=== PATIENT | female | born 1985 | race American Indian/Alaskan Native ===

== ENCOUNTER 2021-11-22 23:27 | Emergency (ER) | payer OTHER ==
[2021-11-22] MEDS ORDERED: methylPREDNISolone Sod Succinate 125 MG/2 ML INJ IV ONE (23:38)
[2021-11-22] MEDS ORDERED: diphenhydrAMINE 50 MG/ML VIAL IV ONE (23:38)
[2021-11-22] MEDS ORDERED: FAMOTIDINE 20 MG/2 ML INJ IV ONE (23:38)
[2021-11-22 23:57] VITALS: BP 128/95
--- NOTE | 2021-11-23 00:56 | Emergency Department Report ---
ED General Adult HPI - General Chief complaint: Allergic Reaction Stated complaint: ALLERGIC REACTION Time Seen by Provider: 11/23/21 00:09 Source: patient Mode of arrival: Ambulatory Limitations: No Limitations - History of Present Illness Initial comments: Patient 36-year-old female who presents for allergic reaction after eating shellfish at family dinner [employer]. Patient states eye itching burning swelling tongue swelling incident started approximately 1 hour ago. Patient denies shortness of breath there is no wheezing or stridor there is been no nausea no vomiting no lightheaded no dizziness no chest pain. Patient rates symptoms at 4/10 at this time. Severity scale (0 -10): 3 - Related Data Previous Rx's Medication Instructions Recorded Last Taken Type EPINEPHrine [Epipen 2-Enrrique] 0.3 mg IJ PRN PRN #1 kit 11/23/21 Unknown Rx Famotidine [Pepcid] 20 mg PO BID 7 Days #15 tablet 11/23/21 Unknown Rx diphenhydrAMINE [Benadryl CAP] 25 mg PO Q8HR PRN #30 capsule 11/23/21 Unknown Rx predniSONE [Deltasone] 40 mg PO DAILY 5 Days #10 tab 11/23/21 Unknown Rx Allergies Allergy/AdvReac Type Severity Reaction Status Date / Time shellfish derived Allergy Anaphylaxis Verified 11/22/21 23:31 ED Review of Systems ROS: Stated complaint: ALLERGIC REACTION Other details as noted in HPI Constitutional: malaise. denies: chills, fever Eyes: eye discharge (Tearing), other (Swelling). denies: eye pain, vision change ENT: other (Tongue swelling). denies: ear pain, throat pain, congestion Respiratory: denies: cough, shortness of breath, SOB with exertion, wheezing Cardiovascular: denies: chest pain, palpitations Endocrine: no symptoms reported Gastrointestinal: denies: abdominal pain, nausea, diarrhea Genitourinary: denies: urgency, dysuria, discharge Musculoskeletal: denies: back pain, joint swelling, arthralgia Skin: pruritus Neurological: denies: headache, weakness, paresthesias, vertigo Psychiatric: denies: anxiety, depression Hematological/Lymphatic: denies: easy bleeding, easy bruising ED Past Medical Hx - Medications Home Medications: Home Medications Medication Instructions Recorded Confirmed Last Taken Type EPINEPHrine [Epipen 2-Enrrique] 0.3 mg IJ PRN PRN #1 kit 11/23/21 Unknown Rx Famotidine [Pepcid] 20 mg PO BID 7 Days #15 tablet 11/23/21 Unknown Rx diphenhydrAMINE [Benadryl CAP] 25 mg PO Q8HR PRN #30 capsule 11/23/21 Unknown Rx predniSONE [Deltasone] 40 mg PO DAILY 5 Days #10 tab 11/23/21 Unknown Rx ED Physical Exam - General Limitations: No Limitations General appearance: alert, in no apparent distress - Head Head exam: Present: normocephalic, normal inspection - Eye Eye exam: Present: PERRL, EOMI, conjunctival injection. Absent: nystagmus Pupils: Present: normal accommodation - ENT ENT exam: Present: mucous membranes moist - Expanded ENT Exam Expanded Ear exam: Present: normal external inspection Mouth exam: Present: other (Tongue swelling). Absent: trismus Throat exam: Positive: other (Uvula remains midline no stridor no wheezing). Negative: tonsillar erythema, tonsillomegaly, tonsillar exudate, R peritonsillar mass, L peritonsillar mass - Neck Neck exam: Present: normal inspection, full ROM. Absent: tenderness, lymphadenopathy, thyromegaly - Respiratory Respiratory exam: Present: normal lung sounds bilaterally. Absent: respiratory distress, wheezes, stridor - Cardiovascular Cardiovascular Exam: Present: regular rate, normal rhythm, normal heart sounds. Absent: systolic murmur, diastolic murmur, rubs, gallop - GI/Abdominal GI/Abdominal exam: Present: soft. Absent: distended, tenderness - Rectal Rectal exam: Present: deferred - Extremities Exam Extremities exam: Present: normal inspection, full ROM, normal capillary refill. Absent: pedal edema - Back Exam Back exam: Present: normal inspection, full ROM. Absent: tenderness - Neurological Exam Neurological exam: Present: alert, oriented X3, CN II-XII intact, normal gait - Expanded Neurological Exam Expanded Cranial nerves: EOM's Intact: Normal, Gag Reflex: Normal, Tongue Deviation: Normal, Nystagmus: Normal, Facial Sensation: Normal Motor strength exam: RUE: 5, LUE: 5, RLE: 5, LLE: 5 Best Eye Response (Shelley): (4) open spontaneously Best Motor Response (Shelley): (6) obeys commands Best Verbal Response ([place]helley): (5) oriented [place] Total: 15 - Psychiatric Psychiatric exam: Present: normal affect, normal mood - Skin Skin exam: Present: warm, dry, intact, normal color, other (No high). Absent: rash, erythema, petechiae, ecchymosis ED Course Vital Signs 11/22/21 11/22/21 23:31 23:56 Temperature 98.0 F Pulse Rate 111 H 109 H Respiratory 16 17 Rate Blood Pressure 132/86 Blood Pressure 128/95 [Left] O2 Sat by Pulse 97 98 Oximetry ED Medical Decision Making - Medical Decision Making Facial swelling improved tongue swelling improved, speech is clear, lung sounds are clear throughout no wheezing no stridor, breathing is even nonlabored. There is no hives no rash. Plan DC to home with prescriptions. Patient given education on use of EpiPen. Patient will follow-up primary care doctor in 2 to 3 days. Patient verbalizes agreement and understanding of discharge plan. Patient will be DC'd home in stable condition at this time. Critical care attestation.: If time is entered above; I have spent that time in minutes in the direct care of this critically ill patient, excluding procedure time. ED Disposition Clinical Impression: Allergic reaction to shellfish Disposition: 01 HOME / SELF CARE / HOMELESS Is pt being admited?: No Does the pt Need Aspirin: No Condition: Stable Instructions: Seafood Allergy, How to Use an Auto-Injector Pen, Food Allergy Additional Instructions: Take medications as prescribed, follow-up with your doctor in 2 to 3 days. Avoid shellfish, return to emergency department should symptoms worsen. Prescriptions: diphenhydrAMINE [Benadryl CAP] 25 mg PO Q8HR PRN #30 capsule PRN Reason: Itching / Allergies predniSONE [Deltasone] 40 mg PO DAILY 5 Days #10 tab EPINEPHrine [Epipen 2-Enrrique] 0.3 mg IJ PRN PRN #1 kit PRN Reason: severe allergy symptoms Famotidine [Pepcid] 20 mg PO BID 7 Days #15 tablet Referrals: KAMALJIT STEPHENS MD [Staff Physician] - 3-5 Days Forms: Work/School Release Form(ED) Time of Disposition: 01:07
== END 2021-11-23 01:37 | disposition home or self-care (01) ==
LOC: ED 23:27
DX: T78.02XA Anaphylactic reaction due to shellfish (crustaceans), initial encounter (principal); Z91.013 Allergy to seafood; X58.XXXA Exposure to other specified factors, initial encounter
CPT/HCPCS: 96374; 96375; 99282; J1200; J2930; J3490